=== PATIENT | male | born 1945 | race Caucasian/White ===

== ENCOUNTER 2019-02-02 13:20 | Day surgery (SDC) | payer MEDICARE, OTHER ==
[~2019-02-02] VITALS: Ht 180.3 cm; Wt 85.7 kg
[~2019-02-02 13:20] MED LIST: AMLOATOR; ASPI81CH; ATEN100; Cialis2.5 MG; Crestor40 MG; Crestor40 MG PO; DAILY MULTIPLE1 EACH; EZET10; FLONASE ALLERG9.9 ML; Flonase 0.05% N16 GM; Lotensin40 MG PO; METO100ER PO; MULTI VITAMIN1 EACH PO; SILDENAFIL20 MG PO; ZOLP5; ZOLP5 PO
--- NOTE | 2019-02-02 13:53 | NUR ---
02/02/19 1352 Angelika Joel IN PREOP PT STATES HE ATE 1/2 A RAMIREZ AT 1330. DR MICHAEL NOTIFIED. NO ORDERS RECEIVED AT THIS TIME.
[2019-02-02] MEDS ORDERED: Aspirin EC81 MG PO (14:04)
[2019-04-05] MEDS ORDERED: METO100ER PO (12:08)
[2019-04-05] MEDS ORDERED: Flonase 0.05% N16 GM (12:08)
[2019-04-05] MEDS ORDERED: Aspir 8181 MG PO (12:08)
[2019-04-05] MEDS ORDERED: SILDENAFIL20 MG PO (12:09)
[2019-04-05] MEDS ORDERED: ZOLP5 PO (12:09)
[2019-04-05] MEDS ORDERED: Crestor40 MG PO (12:09)
[2019-04-05] MEDS ORDERED: Benazepril HCl40 MG PO (12:10)
[2019-04-05] MEDS ORDERED: Multiple Vitam1 EAC1 PO (12:10)
== END 2019-02-02 14:10 | disposition home or self-care (01) ==
LOC: ORSCSDS 13:20
DX: Z12.11 Encounter for screening for malignant neoplasm of colon (principal); Z86.010 Personal history of colon polyps; Z53.9 Procedure and treatment not carried out, unspecified reason
CPT/HCPCS: J2704; J7120

== ENCOUNTER 2019-04-13 09:58 | Day surgery (SDC) | payer MEDICARE, OTHER ==
[~2019-04-13] VITALS: Ht 182.9 cm; Wt 83.4 kg
[~2019-04-13 09:58] MED LIST changes: +Aspir 8181 MG PO; +Aspirin EC81 MG PO; +Benazepril HCl40 MG PO; +Multiple Vitam1 EAC1 PO
--- NOTE | 2019-04-13 11:56 | NUR ---
04/13/[address] NOTIFIED BY [facility].KDG OF BP 219/94. NO ORDERS WERE GIVEN. 1148 BP RECHECKED WITH RESULTS OF 188/86. PER PT. HE GET'S WHITE COAT SYNDROME.
--- NOTE | 2019-04-13 12:52 | NUR ---
04/13/19 1252 Joan Hammond 6ML NACL USED FOR POLYP REMOVAL ON ICV.
== END 2019-04-13 13:22 | disposition home or self-care (01) ==
LOC: ORSCSDS 09:58
PROVIDERS: Internal Medicine Gastroenterology
PROC: 0DBL8ZX Excision of Transverse Colon, Via Natural or Artificial Opening Endoscopic, Diagnostic (ICD-10-PCS; principal; 2019-04-13 11:30)
PROC: 0DBK8ZX Excision of Ascending Colon, Via Natural or Artificial Opening Endoscopic, Diagnostic (ICD-10-PCS; principal; 2019-04-13 11:30)
PROC: 0DBC8ZX Excision of Ileocecal Valve, Via Natural or Artificial Opening Endoscopic, Diagnostic (ICD-10-PCS; principal; 2019-04-13 11:30)
PROC: 0DBM8ZX Excision of Descending Colon, Via Natural or Artificial Opening Endoscopic, Diagnostic (ICD-10-PCS; principal; 2019-04-13 11:30)
DX: Z12.11 Encounter for screening for malignant neoplasm of colon (principal); Z86.010 Personal history of colon polyps; D12.0 Benign neoplasm of cecum; D12.2 Benign neoplasm of ascending colon; D12.3 Benign neoplasm of transverse colon; K52.9 Noninfective gastroenteritis and colitis, unspecified; K57.30 Diverticulosis of large intestine without perforation or abscess without bleeding; K64.8 Other hemorrhoids; I10 Essential (primary) hypertension; E11.9 Type 2 diabetes mellitus without complications; E78.5 Hyperlipidemia, unspecified; I25.10 Atherosclerotic heart disease of native coronary artery without angina pectoris; Z79.899 Other long term (current) drug therapy; Z79.82 Long term (current) use of aspirin
CPT/HCPCS: 88305; J2704; J7120

== ENCOUNTER 2025-03-16 14:21 | Emergency (ER) | payer OTHER, MEDICARE ==
[~2025-03-16] VITALS: Ht 180.3 cm; Wt 88.0 kg
[2025-03-16 14:39] LABS: BASOPHILS ABSOLUTE AUTO 0.03 K/mm3 (0.00-0.23); BASOPHILS PERCENT AUTO 0 % (0-2); EOSINOPHILS ABSOLUTE AUTO 0.08 K/mm3 (0.00-0.68); EOSINOPHILS PERCENT AUTO 1 % (0-6); Hematocrit 40.5 % (37.0-53.0); Hemoglobin 13.2 g/dL (13.5-17.5); IMMATURE GRAN ABSOLUTE AUTO 0.09 K/mm3 (0.00-0.10); IMMATURE GRAN PERCENT AUTO 1 % (0-1); LYMPHOCYTES ABSOLUTE AUTO 1.14 K/mm3 (0.84-5.20); LYMPHOCYTES PERCENT AUTO 10 % (21-46); MONOCYTES ABSOLUTE AUTO 0.90 K/mm3 (0.16-1.47); MONOCYTES PERCENT AUTO 8 % (4-13); Mean Corpuscular HGB Conc 32.6 g/dL (31.5-36.5); Mean Corpuscular Volume 91 fL (80-100); NEUTROPHILS ABSOLUTE AUTO 9.61 K/mm3 (1.96-9.15); NEUTROPHILS PERCENT AUTO 81 % (41-73); NRBC ABSOLUTE 0.00 K/mm3 (0.00-0.02); NRBC Auto 0.0 /100 WBC (0.0-0.2); Platelet Count 228 K/mm3 (150-400); RDW Coefficient Variation 14.3 % (11.7-14.2); RDW Standard Deviation 48.0 fL (35.1-46.3)
[2025-03-16 14:51] LABS: Source, Urine Clean Catch
[2025-03-16 14:58] LABS: Bilirubin, Urine Neg (Neg); Color, Urine Yellow (P-Yellow); Glucose Qualitative, Urine 2+ (Neg); Ketones, Urine Neg (Neg); Leukocyte Esterase, Urine 1+ (Neg); Protein, Urine 1+ (Neg); Specific Gravity, Urine 1.020 (1.003-1.022); Urobilinogen, Urine NORM (Normal)
[2025-03-16] MEDS ORDERED: Human Prothrombin Complx(Pcc) 2,000 UNIT in Water For Injection,Sterile 80 ML IV ONE (15:00)
[2025-03-16 15:14] LABS: Anion Gap 8.0 mmol/L (3-11); Blood Urea Nitrogen 12.0 mg/dL (8-24); CO2, Blood 25.0 mmol/L (21-32); Calcium, Blood 8.6 mg/dL (8.5-10.1); Chloride, Blood 105.0 mmol/L (98-108); Creatinine, Blood 0.83 mg/dL (0.60-1.20); Glucose, Blood 245.0 mg/dL (70-99); Magnesium, Blood 2.1 mg/dL (1.6-2.4); Potassium, Blood 4.2 mmol/L (3.5-5.5); Sodium, Blood 134.0 mmol/L (136-145); Thyroid Stimulating Hormone 2.33 uIU/mL (0.360-4.800)
[2025-03-16] MEDS ORDERED: FUROSEMIDE20 MG PO (16:30)
[2025-03-16] MEDS ORDERED: TAMSULOSIN HCL0.4 M1 PO (16:30)
[2025-03-16] MEDS ORDERED: ELIQUIS5 M3 PO (16:31)
[2025-03-16] MEDS ORDERED: AMLODIPINE BESY10 MG PO (16:31)
[2025-03-16 21:00] VITALS: BP 139/67
== END 2025-03-16 21:00 | disposition home or self-care (01) ==
LOC: ER 14:21
PROVIDERS: Emergency Medicine
DX: S06.6X1A Traumatic subarachnoid hemorrhage with loss of consciousness of 30 minutes or less, initial encounter (principal); I48.91 Unspecified atrial fibrillation; W01.0XXA Fall on same level from slipping, tripping and stumbling without subsequent striking against object, initial encounter; Z87.891 Personal history of nicotine dependence; Z79.82 Long term (current) use of aspirin; Z79.899 Other long term (current) drug therapy
CPT/HCPCS: 70450; 70496; 70498; 71045; 72125; 72170; 80048; 81001; 83735; 84439; 84443; 85025; 93005; 93010; 96365; J7168; Q9967